=== PATIENT | male | born 1945 | race Caucasian/White ===

== ENCOUNTER 2017-06-20 08:21 | Outpatient (CLI) | payer MEDICARE ==
--- NOTE | 2017-06-20 14:31 | NM ---
RADIONUCLIDE GASTRIC EMPTYING SCAN: Date: 06/20/17 HISTORY: Nausea with vomiting, unspecified. RADIOPHARMACEUTICAL: 2 mCi technetium-99m sulfur colloid administered orally in scrambled eggs. FINDINGS: There is 47% emptying of the ingested gastric contents at 1 hour, 66% emptying at 2 hours, and 80% em ptying at 3 and 4 hours, respectively. IMPRESSION: Delayed gastric emptying. POS: C
== END 2017-06-20 08:22 | disposition home or self-care (01) ==
LOC: NM 08:21
PROVIDERS: ATTEND Internal Medicine
DX: K59.09 Other constipation (principal); R11.2 Nausea with vomiting, unspecified
CPT/HCPCS: 78264; A9541

== ENCOUNTER 2017-09-26 09:11 | Outpatient (CLI) | payer MEDICARE ==
--- NOTE | 2017-09-26 10:51 | RAD ---
BARIUM SWALLOW: History: Dysphasia. Patient feels like things occasionally get stuck in his chest. FINDINGS: A double contrast barium swallow is performed with air and barium. Esophageal motility is normal. No stricture is seen in the esophagus. No extrinsic compression on the esophagus is seen. A 30 mm barium tablet passed without difficulty into the stomach. No gastroesophageal reflux is seen during the exa mination. There is no evidence of hiatal hernia. IMPRESSION: Unremarkable exam. POS: [facility]
== END 2017-09-26 09:12 | disposition home or self-care (01) ==
LOC: RAD 09:11
PROVIDERS: ATTEND Internal Medicine
DX: R13.10 Dysphagia, unspecified (principal)
CPT/HCPCS: 74220

== ENCOUNTER 2017-10-18 09:47 | Outpatient (CLI) | payer MEDICARE | END 2017-10-18 09:48 | disposition home or self-care (01) | PROVIDERS: ATTEND Internal Medicine | DX: R13.10 Dysphagia, unspecified (principal); K21.9 Gastro-esophageal reflux disease without esophagitis | CPT/HCPCS: 74230; G8996-GN-CJ; G8997-GN-CJ; G8998-GN-CJ ==

== ENCOUNTER 2018-06-26 12:05 | Outpatient (CLI) | payer MEDICARE ==
[~2018-06-26 12:05] MED LIST: ISOVUE-370 76%-LOCM 1 ML ONE
--- NOTE | 2018-06-26 15:46 | CT ---
CT ABDOMEN WITH AND WITHOUT IV CONTRAST: CT PELVIS WITH AND WITHOUT IV CONTRAST: 06/26/2018 HISTORY: Gross hematuria that started three weeks ago. The patient continues to have microhematuria. History of renal calculi. COMPARISON: 04/17/2009 FINDINGS: The lung bases are clear. Prominent vascular calcification is seen in the visualized coronary arteri es. Vascular calcifications are also seen involving the abdominal aorta and iliac arteries. A subcentimeter, wnr-lravn-xb-characterize, hypodense lesion is seen in the medial aspect, mid portio n, left kidney. The kidneys otherwise have a normal CT appearance bilaterally and no enhancing renal mass is seen. No renal or ureteral calculi are seen bilaterally, and there is no hydronephrosis. O nly the more proximal ureters are opacified on delayed imaging and, where opacified, no definitive fi lling defect is seen within the renal collecting systems or proximally opacified bilateral ureters. The urinary bladder is partially distended and has a normal CT appearance. The liver, spleen, pancreas, and bilateral adrenal glands demonstrate a normal CT appearance. There is a small fat density structure with a hypodense rim seen within the right mid abdomen, just a nterior to the level of the ascending colon, which measures 1.3 cm. This could be related to a small focal area of fat necrosis or sequela of epiploic appendagitis. No free fluid, fluid collection, or lymphadenopathy is seen in the abdomen or pelvis. The prostate g land is at the upper limits of normal in size. Mild degenerative changes are seen in the spine. IMPRESSION: 1. Subcentimeter, idz-esjil-pz-characterize, hypodense lesion in the left kidney. 2. No renal or ureteral calculi are seen bilaterally, and there is no hydronephrosis. 3. No evidence of an enhancing renal mass. 4. Approximately 1.3 cm fat density structure with a hypoechoic rim anterior to the ascending colon, most likely attributable to a small focal area of fat necrosis. This could potentially represent se quela of prior epiploic appendagitis. 5. Atherosclerotic vascular calcifications. POS: [facility]
== END 2018-06-26 12:06 | disposition home or self-care (01) ==
LOC: BICCT 12:05
PROVIDERS: ATTEND Urology
DX: R31.0 Gross hematuria (principal); N28.89 Other specified disorders of kidney and ureter; I70.90 Unspecified atherosclerosis; R93.3 Abnormal findings on diagnostic imaging of other parts of digestive tract
CPT/HCPCS: 74178; 82565; Q9966

== ENCOUNTER 2019-02-07 11:40 | Outpatient (CLI) | payer MEDICARE ==
[2019-02-07 12:53] LABS: Hemoglobin 17.4 g/dL (14.0-18.0); Mean Corpuscular HGB CONC 33.4 g/dL (32.0-36.0); Mean Corpuscular Hemoglobin 32.9 pg (27.0-31.0); Mean Corpuscular Volume 98.3 fL (78.0-98.0); Mean Platelet Volume 8.5 fL (7.4-10.4); Platelet Count 233 thou/uL (130-400); RBC Distribution Width 12.5 % (11.5-14.5); Red Blood Cell (RBC) Count 5.28 mill/uL (4.70-6.10); White Blood Cell (WBC) Count 6.3 thou/uL (4.8-10.8)
[2019-02-07 13:03] LABS: Bacteria/HPF None Seen HPF (None Seen); Bilirubin Negative (Negative); Blood, Urine Negative (Negative); Clarity Clear (Clear); Glucose, Urine (Dipstick) Normal (Negative); Leukocyte Negative Leu/uL (Negative); Mucous/LPF Rare LPF (<2+); Nitrite Negative (Negative); Protein, Urine (Dipstick) 20 mg/dL (Neg-Trace); Squamous Epithelial 0-3 HPF (0-3); Urobilinogen 3 mg/dL (Less than 2); WBC/HPF 0-3 HPF (0-3)
[2019-02-07 13:13] LABS: Anion Gap 18 mmol/L (10-20); BUN (Urea Nitrogen) 16 mg/dL (8.4-25.7); Calc. Creatinine Clearance 0 mL/min (70-130); Calcium 9.6 mg/dL (7.8-10.44); Carbon Dioxide 26 mmol/L (23-31); Chloride 103 mmol/L (98-107); Estimated GFR-MDRD 75; Glucose 109 mg/dL (83-110); Potassium 4.5 mmol/L (3.5-5.1); Sodium 142 mmol/L (136-145)
[2019-02-07 13:19] LABS: PTT 28.2 SEC (22.9-36.1); Prothrombin Time 13.6 SEC (12.0-14.7)
--- NOTE | 2019-02-10 11:42 | EKG ---
Test Reason : Blood Pressure : / mmHG Vent. Rate : 055 BPM Atrial Rate : 055 BPM P-R Int : 178 ms QRS Dur : 092 ms QT Int : 452 ms P-R-T Axes : 037 -31 -03 degrees QTc Int : 432 ms Sinus bradycardia Left axis deviation Nonspecific T wave abnormality Abnormal ECG Confirmed by ROCK STEVENSON ([id number]) on 02/10/2019 11:42:23 AM Referred By: JESE Confirmed By:ROCK STEVENSON
== END 2019-02-07 11:41 | disposition home or self-care (01) ==
LOC: LABBT 11:40
PROVIDERS: ATTEND Urology
DX: Z01.818 Encounter for other preprocedural examination (principal); N40.1 Benign prostatic hyperplasia with lower urinary tract symptoms; R31.0 Gross hematuria
CPT/HCPCS: 80048; 81001; 85027; 85610; 85730; 87086; 93005; 93010

== ENCOUNTER 2019-02-14 07:19 | Day surgery (SDC) | payer MEDICARE ==
[2019-02-07 11:51] VITALS: BMI 27.3
[2019-02-14] MEDS ORDERED: Levofloxacin 500 mg/D5W 100 ml Premix Bag ONE (09:06)
[2019-02-14] MEDS ORDERED: PROPOFOL 200 MG/20 ML VIAL ONE (10:30)
[2019-02-14] MEDS ORDERED: Fentanyl 100 MCG/2 ML VIAL ONE (10:31)
[2019-02-14] MEDS ORDERED: PROPOFOL 60 ML ONE (10:31)
--- NOTE | 2019-02-14 11:34 | OP ---
DATE OF PROCEDURE: 02/14/2019 SERVICES: Urology. PREOPERATIVE DIAGNOSIS: Benign prostatic hyperplasia with urinary symptoms. POSTOPERATIVE DIAGNOSIS: Benign prostatic hyperplasia with urinary symptoms. PROCEDURE PERFORMED: UroLift with 5 implants. INDICATION FOR PROCEDURE: Mr. Ornelas is a 73-year-old white male with BPH and significant lower urinary complaints. He tried taking Flomax, but did not seem to have any response to this. He is still having significant voiding difficulties. He appeared to be cystoscopically amenable to UroLift procedure and had a volume that was acceptable as well. We discussed the procedure with risks and benefits and he agreed to proceed forward. DESCRIPTION OF PROCEDURE: After identification of armband and verification of consent, the patient was brought back to the operating room, where he underwent total intravenous anesthesia. He was then placed in dorsal lithotomy position and prepped and draped in usual sterile fashion. After appropriate time-out, a lubricated 21-Austrian rigid cystoscope with visual obturator was passed into the urethra into the prostate, which showed hypertrophy as previously been demonstrated on cystoscopy. The visual obturator was switched out for the UroLift device, which was brought back to the level of the patient's left bladder neck and positioned so that the steel tab would deploy within the prostate. Compression was achieved on the anterior aspect of the proximal prostate and then the safety released. The blue trigger was fired to deploy the Nitinol needle and then the leblanc trigger squeezed to deploy the Nitinol catheter tabs. The UroLift device was then advanced forward until the white line was in the keyhole and then the prostatic end piece deployed with the blue release tab. This resulted in nice opening of the lateral aspect of the prostate. This was again done on the right side towards the bladder neck and toward the apex of the prostate bilaterally. There was a lobe and a bulge of the prostate sticking out on the patient's left towards the prostatic apex, which was captured with a 5th UroLift implant. There was a mild median lobe, but when looking from the verumontanum, there was already a very wide open anterior channel and there did not appear to be any need to place a pinning procedure for the implant on the median lobe as the prostate was already wide open. Satisfied, the 5 implants was sufficient. The bladder was left full and the UroLift device removed. An 18-Austrian Adler catheter was placed in the bladder with 10 mL of sterile water in the balloon. The patient was then taken out of positioning, awakened, taken to Day Stay for recovery in stable condition. COMPLICATIONS: None. ESTIMATED BLOOD LOSS: Minimal. RETAINED TUBES AND DRAINS: An 18-Austrian Adler catheter. SPECIMENS: None. IMPLANTS: Five UroLift implants. DISPOSITION: The patient will undergo a voiding trial in the PACU. They will then be discharged afterwards with followup on an outpatient basis. Job ID: [id number]
[2019-02-14] MEDS ORDERED: Phenazopyridine HCl 97.5 MG TABLET ONE (14:00)
== END 2019-02-14 14:20 | disposition home or self-care (01) ==
LOC: SDC 07:19
PROVIDERS: ATTEND Urology
PROC: 0T7D8DZ Dilation of Urethra with Intraluminal Device, Via Natural or Artificial Opening Endoscopic (ICD-10-PCS; principal; 2019-02-14)
DX: N40.1 Benign prostatic hyperplasia with lower urinary tract symptoms (principal); R31.0 Gross hematuria; E03.9 Hypothyroidism, unspecified; E11.9 Type 2 diabetes mellitus without complications; E78.5 Hyperlipidemia, unspecified; G47.30 Sleep apnea, unspecified; Z79.4 Long term (current) use of insulin; Z79.82 Long term (current) use of aspirin; Z79.899 Other long term (current) drug therapy; Z99.89 Dependence on other enabling machines and devices
CPT/HCPCS: 82962; C9740; 36416; C1889; J1956; J2704; J3010